=== PATIENT | male | born 1970 | race Caucasian/White ===

== ENCOUNTER 2020-12-01 22:56 | Observation (INO) ==
[2020-12-01] MEDS ORDERED: IOPAMIDOL 100 ML BOTTLE IV ONE (22:57)
[2020-12-01] MEDS ORDERED: KETOROLAC 15 MG/ML VIAL IV ONE (23:28)
[2020-12-01 23:41] LABS: POC Creatinine 0.8 mg/dL (0.6-1.2)
[2020-12-02] LABS: Basophils # (Auto) 0.03 K/mcL (0.00-0.30); Basophils % (Auto) 0.4 % (0.0-2.0); Eosinophils # (Auto) 0.12 K/mcL (0.00-0.70); Eosinophils % (Auto) 1.5 % (0.0-7.0); Hematocrit 39.5 % (40.1-51.0); Hemoglobin 13.4 g/dL (13.7-17.5); Lymphocytes # (Auto) 2.73 K/mcL (1.50-4.80); Mean Cell Volume 85.9 fL (80.0-100.0); Mean Corpuscular HGB Conc 33.9 g/dL (31.0-36.0); Mean Platelet Volume 10.3 fL (7.4-10.4); Monocytes # (Auto) 0.81 K/mcL (0.10-0.90); Monocytes % (Auto) 10.4 % (1.0-12.0); Neutrophils % (Auto) 52.7 % (38.0-78.0); Platelet Count 197 K/mcL (140-440); Red Cell Distribution Width 12.9 % (11.5-14.5); WBC 7.8 K/mcL (4.5-11.0)
[2020-12-02 00:36] LABS: ALT/SGPT 22 U/L (<40); AST/SGOT 22 U/L (<40); Albumin 4.4 gm/dL (3.2-5.2); Albumin/Globulin Ratio 2.3 (1.0-2.3); Alkaline Phosphatase 97 U/L (39-117); Bilirubin,Total 0.2 mg/dL (0.1-1.0); Blood Urea Nitrogen 14 mg/dL (6-20); Calcium 9.1 mg/dL (8.6-10.4); Carbon Dioxide 25 mmol/L (22-30); Chloride 103 mmol/L (96-108); Globulin 1.9 gm/dL (2.2-3.7); Glomerular Filtration Rate 104; Glucose 107 mg/dL (70-105)
[2020-12-02] MEDS ORDERED: ONDANSETRON 4 MG/2 ML VIAL IV PRN ×2 (01:36→10:05)
[2020-12-02] MEDS ORDERED: PIPERACILLIN SODIUM/TAZOBACTAM 3.375 GM in DEXTROSE 5% IN WATER 50 ML IV ONE (01:36)
[2020-12-02] MEDS ORDERED: morphine 15 MG TABLET PO PRN (01:36)
[2020-12-02] MEDS ORDERED: 0.9 % SODIUM CHLORIDE 1,000 ML IV SCH (01:45)
--- NOTE | 2020-12-02 01:46 | Emergency Department Note ---
HPI General Chief complaint: Abdominal Pain Stated complaint: abd pain Time Seen by Provider: 12/01/20 23:23 Source: patient Mode of arrival: ambulatory Limitations: no limitations History of Present Illness HPI Narrative: Narrative: Patient is a 50-year-old male who presented with chief complaint of abdominal pain. Patient states over the past day and a half has been having some generalized worsening abdominal pain that this evening localized into the right lower quadrant. He came in because he was concerned for possible appendicitis. He denies any other significant associated symptoms such as fever, headache, cough, shortness of breath, chest pain, nausea, vomiting, changes in bowel movements or urinary symptoms, testicular pain or swelling. Related Data Home Medications Medication Instructions Recorded Confirmed lamotrigine 100 mg tablet 200 mg PO BID tab 10/15/19 10/27/20 Previous Rx's Medication Instructions Recorded albuterol sulfate 2 puff INHALATION Q6H PRN #6.7 g 09/29/20 Allergies Allergy/AdvReac Type Severity Reaction Status Date / Time No Known Drug Allergies Allergy Verified 12/01/20 22:57 Review of Systems ROS ROS Narrative: Narrative: All systems ED: reviewed and negative except as stated. [facility] Narrative Patient History Narrative: Narrative: Medical/Surgical/Family History All Active Problems (Updated 12/02/20 @ 01:47 by Patel Blue DO) Acute appendicitis (Acute) Tetanus, diphtheria, and acellular pertussis (Tdap) vaccination declined (Acute) COVID-19 vaccine series declined (Acute) Wellness examination (Acute) COVID-19 (Acute) Chest pain in adult (Acute) Hernia, umbilical (Acute) COVID-19 (Acute) Skin tags, multiple acquired (Acute) Vertigo (Acute) Dizzy spells (Acute) Medical History COVID-19 vaccine series declined Tetanus, diphtheria, and acellular pertussis (Tdap) vaccination declined Wellness examination Social History Smoking Status: Former smoker Exam Narrative Narrative: Narrative: Patient is a 50-year-old male, sitting up in bed, talking normally and appropriately. He does not appear to be in acute discomfort or distress General Limitations: no limitations Head Head: Present atraumatic and normocephalic Eye Eye: Present normal appearance, PERRL and EOMI; Absent scleral icterus and conjunctival injection ENT ENT: Present normal oropharynx and mucous membranes moist Neck Neck: Present full ROM and trachea midline; Absent tenderness and lymphadenopathy Chest Chest: Present symmetric chest wall rise Respiratory Respiratory: Present normal lung sounds bilaterally; Absent respiratory distress, rales/crackles, wheezes, stridor and accessory muscle use Cardiovascular Cardiovascular: Present regular rate and normal rhythm; Absent systolic murmur and diastolic murmur Adbominal Abdominal: Present soft, tenderness, guarding and tenderness at McBurney's Point; Absent rebound, rigidity, Marquez's sign and mass Extremities Extremities: Absent pedal edema, pretibial edema and calf tenderness Back Back: Absent CVA tenderness (R), CVA tenderness (L) and spinous process tenderness Neurological Neurological: Present alert and oriented X3 Psychiatric Psychiatric: Present normal affect and normal mood Skin Skin: Present warm (WNL) and dry Course Vital Signs Vital signs: Vital Signs Temperature 97.7 F 12/01/20 22:57 Pulse Rate 56 L 12/01/20 22:57 Respiratory Rate 18 12/01/20 22:57 Blood Pressure 124/77 12/01/20 22:57 Pulse Oximetry (%) 98 12/01/20 22:57 Temperature 97.7 F 12/01/20 22:57 Pulse Rate 50 L 12/02/20 01:30 Respiratory Rate 18 12/01/20 22:57 Blood Pressure 123/69 12/02/20 00:01 Pulse Oximetry (%) 96 12/02/20 01:[address] [facility] MDM Narrative Medical decision making narrative: Narrative: Patient is a 50-year-old male who presented with chief complaint of abdominal pain. At this time patient had a history and physical exam concerning for possible appendicitis. Blood work overall was unremarkable with no elevated white blood count, vital signs are stable and he does not appear to be septic or toxic. CT scan revealed acute uncomplicated appendicitis, and thus I discussed the case with the on-call general surgeon, Dr. Velazquez. He agreed with the plan of admission at this time, requested holding orders, Zosyn, and he would see the patient in the morning for likely surgery. I discussed this with the patient, and he is agreeable to the plan at this time and has no further concerns or questions. He currently is comfortably in bed, aware of his n.p.o. status, and remains well-appearing. Lab Data Result diagrams: 12/01/20 23:35 12/01/20 23:35 Labs: Lab Results 12/01/20 12/01/20 Range/Units 23:35 23:35 WBC 7.8 (4.5-11.0) K/mcL RBC 4.60 L (4.63-6.08) M/mcL Hgb 13.4 L (13.7-17.5) g/dL Hct 39.5 L (40.1-51.0) % MCV 85.9 (80.0-100.0) fL MCH 29.1 (26.0-34.0) pg MCHC 33.9 (31.0-36.0) g/dL RDW 12.9 (11.5-14.5) % Plt Count 197 (140-440) K/mcL MPV 10.3 (7.4-10.4) fL Neut % (Auto) 52.7 (38.0-78.0) % Lymph % (Auto) 35.0 (15.5-49.0) % Trego % (Auto) 10.4 (1.0-12.0) % Eos % (Auto) 1.5 (0.0-7.0) % Baso % (Auto) 0.4 (0.0-2.0) % Lymph # (Auto) 2.73 (1.50-4.80) K/mcL Trego # (Auto) 0.81 (0.10-0.90) K/mcL Eos # (Auto) 0.12 (0.00-0.70) K/mcL Baso # (Auto) 0.03 (0.00-0.30) K/mcL Absolute Neutrophils 4.11 (1.80-8.00) K/mcL Sodium 138 (133-145) mmol/L Potassium 3.6 (3.3-5.1) mmol/L Chloride 103 (96-108) mmol/L Carbon Dioxide 25 (22-30) mmol/L Anion Gap 10.0 (8.0-16.0) BUN 14 (6-20) mg/dL Creatinine 0.8 (0.7-1.2) mg/dL POC Creatinine 0.8 (0.6-1.2) mg/dL GFR Calculation 104 Glucose 107 H (70-105) mg/dL Calcium 9.1 (8.6-10.4) mg/dL Total Bilirubin 0.2 (0.1-1.0) mg/dL AST 22 (<40) U/L ALT 22 (<40) U/L Alkaline Phosphatase 97 (39-117) U/L Total Protein 6.3 (5.9-8.4) gm/dL Albumin 4.4 (3.2-5.2) gm/dL Globulin 1.9 L (2.2-3.7) gm/dL Albumin/Globulin Ratio 2.3 (1.0-2.3) Lipase 27 (7-60) U/L Discharge Plan Patient/Caregiver Discharge Instructions Pt seen by SALESPERSON NEW CARS/PA only: No Clinical Impression: Acute appendicitis Patient Disposition: Xfer As Inpt ([facility]) Follow up with: Montrell Enamorado MD [Primary Care Provider] - Prescriptions: No Action lamotrigine 100 mg tablet 200 mg PO BID RF: 0 albuterol sulfate 90 mcg/actuation HFA aerosol inhaler 2 puff inhalation Q6H PRN (Reason: shortness of breath or wheezing) Qty: 6.7 RF: 0
[2020-12-02] MEDS: 0.9 % SODIUM CHLORIDE 10 ML SYRINGE IV SCH ×2 (03:20→06:24)
[2020-12-02] MEDS: morphine 2 MG/ML VIAL IV PRN ×3 (03:43→14:31)
[2020-12-02] MEDS ORDERED: morphine 2 MG/ML VIAL ONE (03:44)
--- NOTE | 2020-12-02 07:43 | General Surgery Consult Note ---
HPI Data of Consult Patient: new to practice Consult date: 12/02/20 Primary Care Provider: Montrell Enamorado MD Consult Narrative Patient Information: Note initiated : 12/02/20 at 7:29 am Service Date, if different from initiated Date: [] Patient: Nestor Cunha 50 y/o M admitted on 12/02/20 for abd pain. Chief Complaint: Abdominal pain Nestor is seen in consultation after presenting to the ER earlier today with a less than 24 hour history of RLQ abdominal pain that began as mild cramping and then localized to the Right Lower Abdomen. Prior to that he felt fine and desean ed any major issues. His overall health is good and he has not had prior abdominal surgery. He has had a recent Colonoscopy. He is not on any oral anticoagulants and he denies any cardiopulmonary issues. Specifically, he denies chest pain, home 02 use, CPAP or BIPAP, or other concerns. He does have what he describes as very stable Epilepsy and is on a single longstanding medication for that. He works here in town as a gonzales. Chief complaint: Abdominal pain Reason for consult: Acute Appendicitis cc:: CC: Eduin Velazquez MD Review of Systems All systems: reviewed and no additional remarkable complaints except as stated PFSH PFSH All Active Problems (Updated 12/02/20 @ 01:47 by Patel Blue DO) Acute appendicitis (Acute) Tetanus, diphtheria, and acellular pertussis (Tdap) vaccination declined (Acute) COVID-19 vaccine series declined (Acute) Wellness examination (Acute) COVID-19 (Acute) Chest pain in adult (Acute) Hernia, umbilical (Acute) COVID-19 (Acute) Skin tags, multiple acquired (Acute) Vertigo (Acute) Dizzy spells (Acute) Medical History COVID-19 vaccine series declined Tetanus, diphtheria, and acellular pertussis (Tdap) vaccination declined Wellness examination MEDS/ALLERGIES Home Medications and Allergies Home Medications Medication Instructions Recorded Confirmed Type lamotrigine 100 mg tablet 200 mg PO BID tab 10/15/19 12/02/20 History Allergies Allergy/AdvReac Type Severity Reaction Status Date / Time No Known Drug Allergies Allergy Verified 12/01/20 22:57 Physical Examination Vital Signs Vital signs: Temp Pulse Resp BP Pulse Ox 98.3 F 57 L 16 108/65 96 12/02/20 07:05 12/02/20 07:05 12/02/20 07:05 12/02/20 07:05 12/02/20 07:05 General physical appearance General physical exam: well developed, well nourished and no distress Eyes Eye exam: other (anicteric and normal in appearance ) ENT ENT exam: other (normal external appearance ) Head Head exam IM: Present atraumatic and normocephalic Neck Neck exam: trachea midline Cardiovascular Cardiovascular exam IM: Present normal rate and rhythm and RRR Respiratory Respiratory exam: normal respiratory effort and other (no respiratory distress ) Abdomen Abdomen: Present soft and tender (TTP in RLQ otherwise benign general exam ) Genitourinary Genitourinary (Male): Present other (no CVA tenderness ) Integumentary Integumentary: Present no rash and other (skin intact ) Neurologic Neurologic: Present other (grossly intact, fully alert and oriented ) Psychiatric Psychiatric: Present other (normal affect ) Results Labs Result diagrams: 12/01/20 23:35 12/01/20 23:35 Labs: Abnormal lab results 12/01/20 12/01/20 Range/Units 23:35 23:35 RBC 4.60 L (4.63-6.08) M/mcL Hgb 13.4 L (13.7-17.5) g/dL Hct 39.5 L (40.1-51.0) % Glucose 107 H (70-105) mg/dL Globulin 1.9 L (2.2-3.7) gm/dL Diabetes panel 12/01/20 Range/Units 23:35 Sodium 138 (133-145) mmol/L Potassium 3.6 (3.3-5.1) mmol/L Chloride 103 (96-108) mmol/L Carbon Dioxide 25 (22-30) mmol/L BUN 14 (6-20) mg/dL Creatinine 0.8 (0.7-1.2) mg/dL Glucose 107 H (70-105) mg/dL Calcium 9.1 (8.6-10.4) mg/dL AST 22 (<40) U/L ALT 22 (<40) U/L Alkaline Phosphatase 97 (39-117) U/L Total Protein 6.3 (5.9-8.4) gm/dL Albumin 4.4 (3.2-5.2) gm/dL Calcium panel 12/01/20 Range/Units 23:35 Calcium 9.1 (8.6-10.4) mg/dL Albumin 4.4 (3.2-5.2) gm/dL Pituitary panel 12/01/20 Range/Units 23:35 Sodium 138 (133-145) mmol/L Potassium 3.6 (3.3-5.1) mmol/L Chloride 103 (96-108) mmol/L Carbon Dioxide 25 (22-30) mmol/L BUN 14 (6-20) mg/dL Creatinine 0.8 (0.7-1.2) mg/dL Glucose 107 H (70-105) mg/dL Calcium 9.1 (8.6-10.4) mg/dL Adrenal panel 12/01/20 Range/Units 23:35 Sodium 138 (133-145) mmol/L Potassium 3.6 (3.3-5.1) mmol/L Chloride 103 (96-108) mmol/L Carbon Dioxide 25 (22-30) mmol/L BUN 14 (6-20) mg/dL Creatinine 0.8 (0.7-1.2) mg/dL Glucose 107 H (70-105) mg/dL Calcium 9.1 (8.6-10.4) mg/dL Total Bilirubin 0.2 (0.1-1.0) mg/dL AST 22 (<40) U/L ALT 22 (<40) U/L Alkaline Phosphatase 97 (39-117) U/L Total Protein 6.3 (5.9-8.4) gm/dL Albumin 4.4 (3.2-5.2) gm/dL All other labs normal. A/P Narrative A/P Narrative: Acute Appendicitis Options discussed and Laparoscopic Appendectomy recommended Risks, benefits, potential complications and alternative treatment options are all reviewed and discussed at length including but not limited to infection, bleeding, abscess formation, stump leak, need for additional surgery or procedures, option to NOT undergo surgery and attempt to manage this non operatively, trocar injury, issues related to general anesthesia and other concerns as well He would like to go ahead and we will schedule this for him as soon as the OR can accommodate us this AM. Time Spent With Patient Time: Total time spent is greater than 50% in coordination of care (as documented) at patient's floor/unit and/or counseling patient:
[2020-12-02] MEDS ORDERED: IPRATROPIUM/ALBUTEROL 3 ML AMPUL.NEB NEB PRN ×2 (07:56→10:05)
[2020-12-02] MEDS ORDERED: SCOPOLAMINE 1 PATCH PATCH TOPICAL PRN (07:56)
[2020-12-02] MEDS ORDERED: cefTRIAXone 1 GM VIAL IV ONE (09:07)
--- NOTE | 2020-12-02 09:08 | Cat Scan Report ---
History: Right lower quadrant pain TECHNIQUE: Following injection of intravenous nonionic contrast the patient was scanned during the portal venous phase from the diaphragm through the symphysis pubis. Sagittal and coronal reformats were created. Radiation exposure was limited using dose reduction technology. FINDINGS: Minor dependent atelectasis is present posteriorly in both lung bases. No pleural effusion is present. The liver and spleen are normal size and homogeneous. The gallbladder and bile ducts are normal. The pancreas, adrenals and kidneys are normal. Aorta is normal in caliber and there is no plaque formation. The appendix is thickened and inflamed measuring up to 1 cm in transverse diameter. There is mild inflammation in the surrounding fat. There is no perforation or abscess. Large and small intestine are otherwise normal without evidence of ileus or obstruction. No ascites is present. There is no adenopathy. The bladder, prostate and seminal vesicles are normal. Incidentally noted is a small fat-containing umbilical hernia IMPRESSION: Acute appendicitis without rupture Interpreted and Authenticated by: Henok Santiago 12/02/20
[2020-12-02] MEDS ORDERED: MIDAZOLAM 2 MG/2 ML VIAL ONE (09:15)
[2020-12-02] MEDS ORDERED: fentaNYL 250 MCG/5 ML VIAL IV ONE (09:15)
[2020-12-02] MEDS ORDERED: KETOROLAC 30 MG/ML VIAL ONE (09:15)
[2020-12-02] MEDS ORDERED: ROCURONIUM 10 MG/ML ML IV ONE (09:15)
[2020-12-02] MEDS ORDERED: PROPOFOL 200 MG/20 ML VIAL IV ONE (09:15)
[2020-12-02] MEDS ORDERED: SUGAMMADEX SODIUM 200 MG/2 ML VIAL IV ONE (09:15)
[2020-12-02] MEDS ORDERED: HYDROmorphone 1 MG/ML SYRINGE ONE (09:15)
[2020-12-02] MEDS ORDERED: ONDANSETRON 4 MG/2 ML VIAL ONE (09:15)
[2020-12-02] MEDS ORDERED: DEXAMETHASONE 10 MG/ML VIAL ONE (09:15)
[2020-12-02] MEDS ORDERED: GLYCOPYRROLATE 0.2 MG/ML VIAL IV ONE (09:15)
[2020-12-02] MEDS ORDERED: KETAMINE 50 MG/ML Syringe (ANEST) IV ONE (09:15)
[2020-12-02] MEDS ORDERED: MAGNESIUM SULFATE 2 GM/50 ML BAG IV ONE (09:15)
[2020-12-02] MEDS ORDERED: LIDOCAINE HCL/PF 100 MG/5 ML SYRINGE IV ONE (09:15)
[2020-12-02] MEDS ORDERED: BUPIVACAINE W/EPI 0.5% 50 ML VIAL IJ ONE (09:57)
[2020-12-02 10:00] LABS: Appearance,Urine CLEAR (Clear); Bilirubin,Urine Negative (Negative); Color,Urine YELLOW; Culture Indicated,Urine No; Glucose,Urine (UA) Negative (Negative); Ketones,Urine 5 mg/dL (Negative); Leukocyte Esterase,Urine Negative /uL (Negative); Nitrate,Urine Negative (Negative); Protein,Urine Negative (Negative); Specific Gravity,Urine 1.042 (1.000-1.035); Urine Blood Negative (Negative); Urobilinogen,Urine Negative
[2020-12-02] MEDS ORDERED: FLUMAZENIL 0.1 MG/ML ML IV PRN (10:05)
[2020-12-02] MEDS ORDERED: NALOXONE HCL 0.4 MG/ML VIAL IV PRN (10:05)
[2020-12-02] MEDS ORDERED: METOPROLOL TARTRATE 5 MG/5 ML VIAL IV PRN (10:05)
[2020-12-02] MEDS ORDERED: LACTATED RINGERS 250 ML IV PRN (10:05)
[2020-12-02] MEDS ORDERED: LABETALOL 5 MG/ML ML IV PRN (10:05)
[2020-12-02] MEDS ORDERED: METHOCARBAMOL 1,000 MG/10 ML VIAL IV PRN (10:05)
[2020-12-02] MEDS ORDERED: PROMETHAZINE 25 MG/ML VIAL IM PRN (10:05)
[2020-12-02] MEDS ORDERED: HYDROmorphone 0.5 MG/0.5 ML SYRINGE IV PRN (10:05)
[2020-12-02] MEDS ORDERED: MEPERIDINE 50 MG/ML VIAL IM PRN (10:05)
[2020-12-02] MEDS ORDERED: ACETAMINOPHEN 1,000 MG/100 ML BAG IV ONE (10:05)
[2020-12-02] MEDS ORDERED: LACTATED RINGERS 1,000 ML IV SCH (10:15)
[2020-12-02] MEDS: fentaNYL 100 MCG/2 ML VIAL IV PRN ×2 (10:37→10:38)
--- NOTE | 2020-12-02 10:38 | Brief Operative Note ---
Brief Operative Note Date of procedure: 12/02/20 Pre-op diagnosis: Acute Appendicitis Post-op diagnosis: same Procedure: Lap Appendectomy Grafts/Implants: No Anesthesia: GETA Findings: Mildly inflamed and indurated Non gangrenous Appendix Complications: none Surgeon: Eduin Velazquez Estimated blood loss (cc): 5 Specimens Removed/Pathology: other (appendix ) Condition: stable Disposition: PACU
[2020-12-02] MEDS ORDERED: BENZOCAINE/MENTHOL 1 LOZENGE PO ONE (10:58)
--- NOTE | 2020-12-02 14:12 | Operative Note ---
DATE OF OPERATION: 12/02/2020 PREOPERATIVE DIAGNOSIS: Acute appendicitis. POSTOPERATIVE DIAGNOSIS: Acute appendicitis. OPERATIVE PROCEDURE: Laparoscopic appendectomy. SURGEON: Eduin Velazquez M.D. ANESTHESIA: General. PREOPERATIVE MEDICATIONS: 1. Zosyn. 2. Rocephin. INDICATIONS FOR PROCEDURE: The patient is a 50-year-old male who presented to the emergency room rather late in the night last night after roughly a 12- to 18-hour history of increasing abdominal pain that localized to the right lower abdomen. CT scan was obtained soon after arrival in the emergency room, which demonstrated findings consistent with acute appendicitis. We saw him in consultation and discussed risks, benefits, potential complications, and alternative treatment options. He very much wished to undergo surgery, despite being offered a nonoperative approach. We agreed with those recommendations for him. Risks, benefits, potential complications, and alternative treatment options were all discussed. DESCRIPTION OF PROCEDURE: The patient was taken to the operating room and placed supine on the OR table, placed under general anesthesia and intubated. Bilateral SCDs were applied. All pressure sensitive areas were carefully padded. His arms were tucked to the side. The abdomen was then shaved and then widely prepped and draped in a sterile fashion. Procedure began with accessing the peritoneal cavity utilizing a 0-degree, 5-mm scope through the Visiport in the right upper abdomen. Once we had obtained peritoneal access, pneumoperitoneum was obtained with high-flow CO2 insufflation. We then examined the area of our access to make sure there was no evidence of injury and none was seen. We then changed out the 0-degree scope for a 30-degree scope and placed our remaining trocars, This included a 5 mm periumbilical trocar as well as a 5 mm left lower abdominal trocar, all placed under direct vision. We then resited the camera to the periumbilical site and then changed out the right upper abdominal trocar for a 12 mm trocar. Again, placed under direct vision. Next, we airplaned the patient towards the left side and visualized the right colon and the cecum and then ultimately the appendix, which was somewhat adherent to the overlying abdominal wall and moderately inflamed near its tip and minimally inflamed along the rest of its length. It was easily mobilized up into the field. We made a small window at the base of the mesoappendix, which I then transected with a single firing of the 45 mm endovascular stapler. Next, we then went ahead and transected the appendix itself at its junction point with the cecum with additional firing of the stapler. The appendix was removed through the right upper abdominal trocar site without difficulty in an EndoCatch bag without spillage or issue. It was sent to Pathology for permanent inspection. Next, we re-placed the trocar and reexamined the area. There was some mild oozing at the appendiceal staple line on the mesoappendix. This was reinforced with Surgicel, which appeared to render it immediately hemostatic. There was no substantial bleeding on the appendiceal stump staple line. I applied some additional Surgicel here just as a precaution. Next, we examined the area carefully, made sure there was no additional bleeding, no active hemorrhage or other issues, and none were seen. All trocars were then removed under direct vision without difficulty to make sure there is no active bleeding or hemorrhage. Pneumoperitoneum was relieved. I then closed the upper abdominal trocar site with an interrupted 0 Vicryl stitch utilizing a UR-6 needle at the fascial level. We then closed the skin with interrupted 3-0 Vicryl and 4-0 Monocryl sutures, respectively. Steri-Strips and sterile dressings were applied. Please note, no thermal energy or cautery was used in the performance of this procedure. The patient was awakened, extubated, and transferred to PACU in satisfactory condition. There were no apparent complications or issues. Sponge, needle, and instrument counts were correct. Findings were as discussed above. BWkeyla Job ID: [id number] Doc ID: [id number] Eduin Velazquez M.D. ANA
--- NOTE | 2020-12-03 11:02 | Surgical Pathology Report ---
Histology Microscopic Diagnosis Specimen A- APPENDIX, APPENDECTOMY: --- ACUTE APPENDICITIS WITH SEROSITIS. (DMT) Procedural Impression Acute appendicitis. Gross Description Received in formalin labeled appendix, is a kahn-roe appendix, is is 7.2 cm in length by up to 1 cm in diameter. The resection margin is stapled, it is inked black. The serosa is kahn-roe. Sectioning reveals roe fecalith and thick red viscous fluid. Grossly there are no areas of perforation identified. Packaging Supervisor sections are submitted in one cassette. (SCB:billy) Electronically Signed Flako Jones MD, FCAP Electronically Signed 12/03/2020 11:00
== END 2020-12-02 16:55 | disposition home or self-care (01) ==
LOC: ED 22:56 → MEDSUR 22:56
PROVIDERS: ADMIT Surgery Surgical Critical Care; ATTEND Surgery Surgical Critical Care